=== PATIENT | male | born 1985 | race Caucasian/White ===

== ENCOUNTER 2025-05-27 09:02 | Emergency (ER) | payer OTHER | END 2025-05-27 10:46 | disposition home or self-care (01) | LOC: JP.ED 09:02 | DX: S40.011A Contusion of right shoulder, initial encounter (principal); Z88.0 Allergy status to penicillin; W18.30XA Fall on same level, unspecified, initial encounter; Y99.0 Civilian activity done for income or pay | CPT/HCPCS: 73030-26-RT; 73030-RT; 99283 ==

== ENCOUNTER 2025-05-30 11:25 | Emergency (ER) | payer OTHER | END 2025-05-30 13:10 | disposition home or self-care (01) | LOC: JP.ED 11:25 | DX: S05.02XA Injury of conjunctiva and corneal abrasion without foreign body, left eye, initial encounter (principal); Z88.0 Allergy status to penicillin; X58.XXXA Exposure to other specified factors, initial encounter; Y93.89 Activity, other specified | CPT/HCPCS: 99283; A9270 ==

== ENCOUNTER 2025-05-31 15:44 | Emergency (ER) | payer OTHER | END 2025-05-31 17:47 | disposition home or self-care (01) | LOC: JP.ED 15:44 | DX: S05.02XD Injury of conjunctiva and corneal abrasion without foreign body, left eye, subsequent encounter (principal); F17.200 Nicotine dependence, unspecified, uncomplicated; X58.XXXD Exposure to other specified factors, subsequent encounter | CPT/HCPCS: 99283; A9270 ==